=== PATIENT | female | born 1960 | race Caucasian/White ===

== ENCOUNTER 2019-05-26 06:50 | Day surgery (SDC) | payer MEDICARE, MEDICAID ==
[~2019-05-26] VITALS: Ht 167.6 cm; Wt 106.6 kg
[~2019-05-26 06:50] MED LIST: ACETAMINOPHEN-1 EAC1 PO; ASPIR-LOW81 MG PO; CHANTIX1 MG PO; CYCLOBENZAPRINE10 MG PO; LIPITOR40 MG; PERCOCET 10-321 EACH PO; PROAIR RESPICL90 MCG INH; TYLENOL325 MG PO; ZESTRIL40 MG PO
--- NOTE | 2019-05-26 09:05 | NUR ---
05/26/19 0905 Sheets,Britta 0832 PT ARRIVED TO PACU ON 10L VIA MASK AND ORAL AIRWAY IN PLACE. 0834 PT WOKE TO PAINFUL STIMULI AND STARTED COUGHING. BP DECREASED, FLUIDS INCREASED. PT PASSING GAS. 0840 RN MOVES BP CUFF TO OTHER ARM, PT DOES REPORT SOME DIZZINESS, HOB MOVED FROM LOW FOWLERS TO SUPINE. 0855 PT REPORTS NO CHANGE IN DIZZINESS, PT TALKING TO RN. 0900 MANUAL BP TAKEN, 98/60. PT ROLLED ON BACK AND REMIANS IN SUPINE WITH FLUIDS INFUSING. PT DOES REPORT DIZZINESS "A LITTLE" BETTER.
--- NOTE | 2019-05-26 12:40 | OR ---
[facility] [address] [place], [place] [address] Signed DATE OF OPERATION: 05/26/2019 SURGEON: Victor Hugo Valle MD PREOPERATIVE DIAGNOSES: 1. Personal history of right colon adenomatous polyps in 2016. 2. Maternal grandmother with colon cancer. 3. Intermittent blood in stools. POSTOPERATIVE DIAGNOSES: 1. Poor bowel prep. 2. Akaqoze-nb-aehgasor internal hemorrhoids. PROCEDURE: Colonoscopy without biopsy. ESTIMATED BLOOD LOSS: None. INDICATIONS: Yessenia is a 59-year-old female, who has had at least three prior colonoscopies. She did have adenomatous polyps taken out of the right colon in 2016. She was asked by her endoscopist to follow up in 3 years for repeat colonoscopy. Her endoscopist is now retired. Consequently, she was asked to see me with respect to the above. She also explained that her maternal grandmother had colon cancer. Currently, she has no lower GI complaints. In the office, I gave her a pamphlet on colonoscopy. We looked at that together along with the risks including, but not limited to gas bloating, crampy abdominal pain, bleeding, perforation requiring surgery, and missed diagnosis. We also discussed the need for IV conscious sedation. Given her very round full face and neck plus her daily need for Percocet and Flexeril, we asked that an anesthesia provider help us with increased monitoring and sedation with propofol. She had expressed understanding and wished to proceed. PROCEDURE NOTE: Yessenia was taken into our endoscopy suite and placed in the left lateral decubitus position. She was given IV sedation with propofol per our nurse trauma therapist. She had a moderate amount of thick semi-solid brown stool come from the rectum. Her digital rectal exam was unremarkable. The adult colonoscope was introduced. We passed the scope all the way up into the cecum. She had very poor bowel prep. She had multiple areas of heavy thick particulate brown liquid stool matter. None of that could be Electronically Signed By: VICTOR HUGO VALLE MD 05/26/19 1240 PATIENT NAME: YESSENIA VILLAFANA OPERATIVE REPORT DATE OF : 58 REPORT #: [id number] PHYSICIAN: VICTOR HUGO VALLE MD PCP: JESSICA BALDERAS MD REPORT IS CONFIDENTIAL AND NOT TO BE RELEASED WITHOUT AUTHORIZATION [facility] [address] [place], [place] [address] Signed irrigated or suctioned out. We could see the yuhaaviatam's foot and palpate the cecum in the right lower quadrant. We did see the hepatic flexure. The scope had been slowly withdrawn. We had taken several pictures throughout for photodocumentation. We probably saw no more than 40% of the mucosa. Once in the rectum, the scope had been retroflexed and it looks like she has ongricx-vg-lgcpugql internal hemorrhoid columns. After this, the gas was suctioned out and the colonoscope removed. Yessenia tolerated procedure quite well. RECOMMENDATIONS: Yessenia needs to undergo a double bowel prep and we will reschedule her for a repeat colonoscopy with monitored anesthesia care. Victor Hugo Valle MD ALB/MODL /[id number] cc: MD Jessica Whitten MD Copies: VICTOR HUGO VALLE MD, CHRISTOPHER MD ~ Electronically Signed By: VICTOR HUGO VALLE MD 05/26/19 1240 PATIENT NAME: YESSENIA VILLAFANA OPERATIVE REPORT DATE OF : 58 REPORT #: [id number] PHYSICIAN: VICTOR HUGO VALLE MD PCP: JESSICA BALDERAS MD REPORT IS CONFIDENTIAL AND NOT TO BE RELEASED WITHOUT AUTHORIZATION
== END 2019-05-26 09:38 | disposition home or self-care (01) ==
LOC: OPS 06:50 → DS 06:50 → OPS 08:15 → DS 08:45 → OPS 08:45
PROVIDERS: Colon & Rectal Surgery
PROC: 0DJD8ZZ Inspection of Lower Intestinal Tract, Via Natural or Artificial Opening Endoscopic (ICD-10-PCS; principal; 2019-05-26 08:15)
DX: K64.8 Other hemorrhoids (principal); I10 Essential (primary) hypertension; M19.90 Unspecified osteoarthritis, unspecified site; F17.210 Nicotine dependence, cigarettes, uncomplicated; J44.9 Chronic obstructive pulmonary disease, unspecified; E78.00 Pure hypercholesterolemia, unspecified; F12.90 Cannabis use, unspecified, uncomplicated; Z86.010 Personal history of colon polyps; Z80.0 Family history of malignant neoplasm of digestive organs; Z98.890 Other specified postprocedural states; Z88.5 Allergy status to narcotic agent; Z79.899 Other long term (current) drug therapy; Z79.82 Long term (current) use of aspirin
CPT/HCPCS: J2704; J7121

== ENCOUNTER 2019-07-14 05:55 | Day surgery (SDC) | payer MEDICARE, MEDICAID ==
[~2019-07-14] VITALS: Ht 167.6 cm; Wt 104.8 kg
[~2019-07-14 05:55] MED LIST changes: -LIPITOR40 MG; +LIPITOR40 MG PO
--- NOTE | 2019-07-14 08:24 | NUR ---
07/14/19 0824 Pranav,Britta 0811 PT WOKE AND IS ON 6L VIA MASK. PT AWAKE AND TALKING TO RN. PT REPORTS NO PAIN, THEN "WAIT NO BACK IS HURTING REALLY BAD." PT REPORTS SHE TAKE PAIN MEDICATION AT HOME. 0815 MD AT BEDSIDE. 0818 O2 REMOVED. HOB INCREASED AND PT SIPPING WATER AND COFFEE.
--- NOTE | 2019-07-15 06:29 | OR ---
[facility] [address] [place], [place] [address] Signed DATE OF OPERATION: 07/14/2019 SURGEON: Victor Hugo Valle MD PREOPERATIVE DIAGNOSES: 1. Adenomatous colonic polyps in 2016. 2. Grandmother with colon cancer. POSTOPERATIVE DIAGNOSES: 1. 3-5 mm polyps in proximal right colon, mid right colon, hepatic flexure, 65 cm, 50 cm, and 15 cm. 2. Bfbgjvd-tg-mivquoez internal and external hemorrhoids. PROCEDURE: Colonoscopy without biopsy. ESTIMATED BLOOD LOSS: None. INDICATIONS: Yessenia is a 59-year-old female, who underwent her colonoscopy in January [address] Tommie Briseno. She had two small adenomatous polyps removed out of the right colon. She returns now for followup colonoscopy. She has no lower GI complaints. Her grandmother apparently had colon cancer. No one else has colon polyps. In the office, I gave Yessenia a pamphlet on colonoscopy and we looked at that together along with the risks including, but not limited to gas, bloating, crampy abdominal pain, bleeding, perforation requiring surgery, and missed diagnosis. We also discussed the need for IV sedation. Because of her daily need for Percocet, Flexeril, and hydroxyzine, she required endotracheal tube intubation in 2015 and we asked for an anesthesia provider to help us on this occasion. She had expressed understanding and wished to proceed. PROCEDURE NOTE: Yessenia was taken into our endoscopy suite and placed in the left lateral decubitus position. She was placed under LMA anesthesia per our nurse curtain hemmer automatic. A digital rectal exam was performed and this was unremarkable other than minimal to moderate external hemorrhoids. The adult colonoscope was introduced and advanced all around into the cecum under direct visualization of camera without difficulty. Her prep was quite good. The scope was slowly withdrawn. We could easily see the appendiceal orifice and the ileocecal valve. The above-mentioned polyps were easily removed with the help of the hot biopsy forceps. They all measured between 3 and 5 mm. The largest would be at Electronically Signed By: VICTOR HUGO VALLE MD 07/15/19 0629 PATIENT NAME: YESSENIA VILLAFANA OPERATIVE REPORT DATE OF : 58 REPORT #: [id number] PHYSICIAN: VICTOR HUGO VALLE MD PCP: JESSICA BALDERAS MD REPORT IS CONFIDENTIAL AND NOT TO BE RELEASED WITHOUT AUTHORIZATION [facility] [address] [place] [id number] Signed 50 cm. It was probably 5 mm, maybe 6 mm. We saw no diverticulosis. The rectum was unremarkable. Upon retroflexion of the scope, she has minimal to moderate internal hemorrhoids. After this, the gas was suctioned out and colonoscope removed. Yessenia tolerated the procedure quite well. RECOMMENDATIONS: I will see Yessenia back in my office in 7 to 14 days to review her results. She can resume the aspirin in one week. Victor Hugo Valle MD ALB/TESFAYEL /[id number] cc: [facility] Victor Hugo Valle MD Copies: VICTOR HUGO VALLE MD ~ Electronically Signed By: VICTOR HUGO VALLE MD 07/15/19 0629 PATIENT NAME: YESSENIA VILLAFANA OPERATIVE REPORT DATE OF : 58 REPORT #: [id number] PHYSICIAN: VICTOR HUGO VALLE MD PCP: JESSICA BALDERAS MD REPORT IS CONFIDENTIAL AND NOT TO BE RELEASED WITHOUT AUTHORIZATION
--- NOTE | 2019-07-15 15:12 | PATH ---
[facility] [address] [place], [place] [address] Signed SPECIMEN(S): A PROXIMAL RIGHT POLYP SPECIMEN(S): B MID RIGHT POLYP SPECIMEN(S): C HEPATIC FLEXURE POLYP SPECIMEN(S): D COLON POLYP AT 65 CM SPECIMEN(S): E COLON POLYP AT 50 CM SPECIMEN(S): F COLON POLYP AT 15 CM SPECIMEN SOURCE: A. PROXIMAL RIGHT POLYP B. MID RIGHT POLYP C. HEPATIC FLEXURE POLYP D. COLON POLYP AT 65 CM E. COLON POLYP AT 50 CM F. COLON POLYP AT 15 CM CLINICAL HISTORY: History of colon polyps, 2016. Colonoscopy. MICROSCOPIC DESCRIPTION: Histologic sections of all submitted blocks are examined by light microscopy. These findings, together with the gross examination, support the pathologic diagnosis. FINAL PATHOLOGIC DIAGNOSIS: A. Colon, proximal right, polyp, polypectomy: - Tubular adenoma (one fragment). - Fragments of colonic mucosa with cautery artifact. - Negative for high-grade dysplasia or malignancy. - See Comment. B. Colon, mid right, polyp, polypectomy: - Fragments of tubular adenoma. - Negative for high-grade dysplasia or malignancy. C. Colon, hepatic flexure, polyp, polypectomy: - Tubular adenoma. - Negative for high-grade dysplasia or malignancy. D. Colon, polyp at 65 cm, polypectomy: - Fragments of tubular adenoma. - Negative for high-grade dysplasia or malignancy. E. Colon, polyp at 50 cm, polypectomy: - Fragments of tubular adenoma. - Negative for high-grade dysplasia or malignancy. F. Colon, polyp at 15 cm, polypectomy: PATIENT NAME: THEO VILLAFANA PATHOLOGY DATE OF : 58 REPORT #: [id number] PHYSICIAN: DON PATHOLOGY PCP: JESSICA BALDERAS MD REPORT IS CONFIDENTIAL AND NOT TO BE RELEASED WITHOUT AUTHORIZATION [facility] [address] [place], [place] [address] Signed - Colonic mucosa with focal hyperplastic features. - Negative for dysplasia or malignancy. COMMENT: The amount of cautery artifact in the proximal right colon polyp specimen (A) precludes definitive evaluation for low-grade dysplasia in all of the tissue fragments present. No features of high-grade dysplasia or malignancy are seen. NAL:cml:C2NR GROSS DESCRIPTION: Six specimens are received in six containers, labeled "CD." A. The specimen, labeled "CD, proximal right colon," per requisition, is received in formalin and consists of multiple stone soft tissue fragments that measure 0.4 cm in greatest dimension. The specimen is entirely submitted in cassette (A1). B. The specimen, labeled "CD, mid right colon," per requisition, is received in formalin and consists of two stone soft tissue fragments that measure 0.3 cm in greatest dimension. The specimen is entirely submitted in cassette (B1). C. The specimen, labeled "CD, hepatic flexure," per requisition, is received in formalin and consists of two stone soft tissue fragments that measure 0.3 cm in greatest dimension. The specimen is entirely submitted in cassette (C1). D. The specimen, labeled "CD, colon polyp at 65 cm," per requisition, is received in formalin and consists of a single stone soft tissue fragment that measures 0.4 cm in greatest dimension. The specimen is entirely submitted in cassette (D1). E. The specimen, labeled "CD, colon polyp at 50 cm," per requisition, is received in formalin and consists of two stone soft tissue fragments that measure 0.3 cm in greatest dimension. The specimen is entirely submitted in cassette (E1). F. The specimen, labeled "CD, colon polyp at 15 cm," per requisition, is received in formalin and consists of two stone soft tissue fragments that measure 0.3 cm in greatest dimension. The specimen is entirely submitted in cassette (F1). AT (under the direct supervision of a pathologist) The Gross Description was prepared using a voice recognition system. The report was reviewed for accuracy; however, sound-alike word errors, addition and/or deletions may occur. If there is any question about this report, please contact Client Services. PATIENT NAME: THEO VILLAFANA PATHOLOGY DATE OF : 58 REPORT #: [id number] PHYSICIAN: DON FOWLER PCP: JESSICA BALDERAS MD REPORT IS CONFIDENTIAL AND NOT TO BE RELEASED WITHOUT AUTHORIZATION [facility] [address] [place], [place] [address] Signed PERFORMING LABORATORY: The technical component was performed by [employer], [address] [place] [id number] ([employer]: Keren León MD; CLIA# [id number]). [facility], [address], [place] [address] (CLIA# [id number]). Diagnostician: Selena Rubin MD Pathologist Electronically Signed 07/15/2019 Copies: ~ PATIENT NAME: THEO VILLAFANA PATHOLOGY DATE OF : 58 REPORT #: [id number] PHYSICIAN: DON PATHOLOGY PCP: JESSICA BALDERAS MD REPORT IS CONFIDENTIAL AND NOT TO BE RELEASED WITHOUT AUTHORIZATION
== END 2019-07-14 09:05 | disposition home or self-care (01) ==
LOC: DS 05:55 → OPS 05:55
PROVIDERS: Colon & Rectal Surgery
PROC: 0DBL8ZZ Excision of Transverse Colon, Via Natural or Artificial Opening Endoscopic (ICD-10-PCS; 2019-07-14)
PROC: 0DBE8ZZ Excision of Large Intestine, Via Natural or Artificial Opening Endoscopic (ICD-10-PCS; 2019-07-14)
PROC: 0DBK8ZZ Excision of Ascending Colon, Via Natural or Artificial Opening Endoscopic (ICD-10-PCS; principal; 2019-07-14 06:45)
DX: Z12.11 Encounter for screening for malignant neoplasm of colon (principal); D12.2 Benign neoplasm of ascending colon; D12.3 Benign neoplasm of transverse colon; K63.5 Polyp of colon; K64.8 Other hemorrhoids; K64.4 Residual hemorrhoidal skin tags; I10 Essential (primary) hypertension; M19.90 Unspecified osteoarthritis, unspecified site; F17.210 Nicotine dependence, cigarettes, uncomplicated; J44.9 Chronic obstructive pulmonary disease, unspecified; G89.29 Other chronic pain; F11.90 Opioid use, unspecified, uncomplicated; Z88.5 Allergy status to narcotic agent; Z79.899 Other long term (current) drug therapy; Z80.0 Family history of malignant neoplasm of digestive organs; Z98.890 Other specified postprocedural states
CPT/HCPCS: J0330; J2704; J7121

== ENCOUNTER 2021-07-13 19:30 | Inpatient (IN) | payer MEDICARE, MEDICAID ==
[~2021-07-13] VITALS: Ht 167.6 cm; Wt 108.8 kg
--- NOTE | ~2021-07-13 | OR ---
[facility] [address] [place], [place] [address] Draft DATE OF OPERATION: 07/17/2021 SURGEON: Ruslan Naidu MD PREOPERATIVE DIAGNOSIS: Right posterolateral acute hemorrhoidal thrombosis. POSTOPERATIVE DIAGNOSIS: Right posterolateral acute hemorrhoidal thrombosis. PROCEDURE: Excision of right posterolateral external hemorrhoid with thrombosis. ANESTHESIA: 0.25% Marcaine with epinephrine 3 mL. INDICATION: This 61-year-old woman has been admitted since July 13, 2021, with left-sided abdominal pain, ultimately found to be related to ischemic colitis. During the course of her colonoscopy recently, she was noted to have complaints of right perianal pain and small nodule, which was examined and found to be thrombosed hemorrhoid (thrombosed external hemorrhoid). Sitz baths have been helpful. Given the acute nature of the lesion and ongoing symptoms, excision is deemed reasonable and offered to the patient. The risk of bleeding, infection, and so forth were reviewed with her, she understands and wished to proceed. FINDINGS: Typical acute thrombosed external hemorrhoid was noted in the right posterolateral aspect. It was excised and enucleated with overlying skin without problem. DESCRIPTION OF PROCEDURE: The patient was brought to the operating room. No IV or general anesthesia was deemed necessary. In the prone position, the buttocks were taped apart and the perianal area prepared with a Betadine solution and draped sterilely. 0.25% Marcaine with epinephrine was injected locally in elliptical configuration over the thrombosed hemorrhoid area. Elliptical incision was made with a 15 blade and using blunt and sharp dissection, the thrombosis with external hemorrhoid was enucleated with the overlying skin entirely. The specimen was passed for pathology. Hemostasis was assured with electrocautery. A small piece of gauze was applied to the site and she was returned to the regular hospital bed PATIENT NAME: THEO VILLAFANA OPERATIVE REPORT DATE OF : 58 REPORT #: [id number] PHYSICIAN: RUSLAN NAIDU MD PCP: VALERY BECERRA MD REPORT IS CONFIDENTIAL AND NOT TO BE RELEASED WITHOUT AUTHORIZATION [address] [address] Draft anticipating transfer back to the regular nursing floor. MD EL Link/MODL /[id number] cc: Valery Becerra MD Copies: VALERY BECERRA MD ~ PATIENT NAME: THEO VILLAFANA OPERATIVE REPORT DATE OF : 58 REPORT #: [id number] PHYSICIAN: RUSLAN NAIDU MD PCP: VALERY BECERRA MD REPORT IS CONFIDENTIAL AND NOT TO BE RELEASED WITHOUT AUTHORIZATION
--- NOTE | ~2021-07-13 | CONS ---
[facility] [address] [place], [place] [address] Draft DATE OF CONSULTATION: 07/14/2021 REQUESTING PHYSICIAN: Valery Becerra M.D. PROBLEM: Left-sided colitis with hematochezia. HISTORY OF PRESENT ILLNESS: This 61-year-old obese Spanish woman was admitted to the hospital at approximately 11:40 p.m. last night, July 13, 2021. She has dominantly complained of left-sided abdominal pain. Prior to this, she was constipated for several days and baked some high-fiber cookies, which allowed for bowel movements, but progressed to cramping abdominal pain associated with diarrhea and ultimately frankly bloody stools. Her pain has been considered severe. She was evaluated in the emergency room and a CT scan was performed and it showed left-sided colitis. The patient has distant history of hypertension and chronic bronchitis, restless legs syndrome, and hyperlipidemia. She does have what has been documented as chronic pain syndrome and opioid dependency. MEDICATIONS: At home include: 1. Albuterol. 2. Lisinopril. 3. Aspirin. 4. Atorvastatin. 5. Cyclobenzaprine. 6. Chantix. I see no medications listed for opioid dependency disorder. Her lab studies at presentation showed normal coagulation with an INR of 0.96. White count of 13.9 and hematocrit of 45.8. Urinalysis was essentially normal. COVID is negative. Chem-20 is normal. Creatinine is 0.99. Since admission to the hospital, she has been on IV antibiotics (Flagyl and Ancef). Her white count has gone from 13.9 to 12.3 today. REVIEW OF SYSTEMS: She denies any hematemesis or nausea or vomiting. She still has some left-sided abdominal pain. She has had no fever or chills. PHYSICAL EXAMINATION: PATIENT NAME: THEO VILLAFANA CONSULTATION DATE OF : 58 REPORT #: [id number] PHYSICIAN: RUSLAN NAIDU MD PCP: VALERY BECERRA MD REPORT IS CONFIDENTIAL AND NOT TO BE RELEASED WITHOUT AUTHORIZATION [facility] [address] [place], [place] [address] Draft GENERAL: This is a pleasant and polite Spanish woman, who looks to be nontoxic. VITAL SIGNS: Pulse is 64, blood pressure 102/49, and O2 saturation 96% on room air. NECK: Trachea is midline. CHEST: Shows normal respiratory excursion. Pulses regular. ABDOMEN: Obese, but generally soft. There is mild tenderness in the left side, none on the right side. EXTREMITIES: Showed no clubbing, cyanosis, or edema. LABORATORY DATA: Lab studies at admission showed white count of 13.9 with hematocrit of 45.8. Currently, white count is 12.3. IMAGING STUDIES: Reviewed from CAT scan performed last night at 08:00 p.m., clear evidence of edematous left-sided colon was noted. Other intraabdominal viscera are normal including the liver and the gallbladder. She has thick abdominal wall pannus. There is no evidence of umbilical hernia. I do not see dominant findings of diverticulitis. Inflammation is distributed dominantly in the left colon it appears. The interpretation of the radiologist was that of long segment distal colitis from the distal transverse colon to the proximal sigmoid and subtle pericolonic stranding. There is no evidence of free fluid or abscess. There is a moderate-sized hiatal hernia and atherosclerotic disease of the aorta vessels, although all were patent. ASSESSMENT AND PLAN: Probably ischemic colitis. The distribution of her problem is very typical of ischemic colitis. She does smoke (having quit three days ago). I discussed the pathophysiology of this problem with her in detail. I would recommend continued IV antibiotics and clear liquid diet for now and planned for a colonoscopy after a bowel prep today. A colonoscopy can be performed tomorrow. I suspect she will have ischemic colitis, for which conservative management will likely be effective. Discussed the pathophysiology of this with her in detail. Complete cessation of smoking will be beneficial to her in the long run and its contribution to her current symptoms was diamante reviewed in detail. The risk of bleeding, infection, and perforation related to colonoscopy was reviewed as well. She understands and wished to proceed. Special note, she has undergone colonoscopy in the past by Dr. Dex Licona, for which she has been found to have polyps. Review of her electronic health record was undertaken and the July 14, 2019 colonoscopy report was reviewed; it appears she is noted to have a grandmother with colon cancer in the past and she had prior history of adenomatous polyps in 2016. Her findings on July 14, 2019, showed 5 mm polyps in the proximal right colon and elsewhere. She had some internal hemorrhoidal changes as well. PATIENT NAME: THEO VILLAFANA CONSULTATION DATE OF : 58 REPORT #: [id number] PHYSICIAN: RUSLAN NAIDU MD PCP: VALERY BECERRA MD REPORT IS CONFIDENTIAL AND NOT TO BE RELEASED WITHOUT AUTHORIZATION [address] [address] Draft MD EL Link/TESFAYEL /[id number] cc: Dr. Fred Cuba MD [facility] Copies: VALERY BECERRA MD [facility] ~ PATIENT NAME: THEO VILLAFANA CONSULTATION DATE OF : 58 REPORT #: [id number] PHYSICIAN: RUSLAN NAIDU MD PCP: VALERY BECERRA MD REPORT IS CONFIDENTIAL AND NOT TO BE RELEASED WITHOUT AUTHORIZATION
--- NOTE | ~2021-07-13 | OR ---
[facility] [address], [place] [address] Draft DATE OF OPERATION: 07/15/2021 SURGEON: Ruslan Naidu MD PREOPERATIVE DIAGNOSES: 1. Left-sided abdominal pain. CT finding of thickened colon, left transverse and left colon suggestive of ischemic colitis. 2. Recent onset hemorrhoidal disease. POSTOPERATIVE DIAGNOSES: 1. Normal-appearing transverse and right colon and rectum, left colon with findings of low-grade inflammation, uncertain for ischemic colitis. 2. External thrombosed hemorrhoid. 3. Left-sided sessile polyp (excised). PROCEDURES: 1. Total colonoscopy to cecum with biopsies of cecum, right colon, left colon, sigmoid and rectum. 2. Cold snare polypectomy x1 (50 cm). ANESTHESIA: Propofol infusional sedation (Deep Bee CRNA). INDICATIONS: This 61-year-old woman was admitted to the hospital by Dr. Becerra on July 13, 2021, with complaints of diarrhea and significant left-sided abdominal pain. A CT scan was performed which showed thickening consistent with colitis of the left colon, sigmoid and left transverse colon. Suggestion was made, this may represent ischemic colitis, so she did have some associated bleeding with it. The patient is a smoker. She has a distant history of hypertension and chronic bronchitis and hyperlipidemia. She has undergone bowel preparation, is now to undergo colonoscopy to confirm or refute the putative diagnosis of ischemic colitis. She understands the risks of bleeding, infection, and perforation related to colonoscopy and wished to proceed. FINDINGS: The prep was good. Complete colonoscopy was undertaken to the cecum without question. The right colon, much of the transverse and all of the rectum appeared entirely normal. There was a sessile polyp at 50 cm which was excised with cold snare technique. The intervening colon of particularly the left colon had the inflammation to be sure, but it PATIENT NAME: THEO VILLAFANA OPERATIVE REPORT DATE OF : 58 REPORT #: [id number] PHYSICIAN: RUSLAN NAIDU MD PCP: VALERY BECERRA MD REPORT IS CONFIDENTIAL AND NOT TO BE RELEASED WITHOUT AUTHORIZATION [facility] [address], [place] [address] Draft was not as severe as anticipated. It was somewhat ambiguous as to the etiology regarding ischemic versus inflammatory in some other way. There were segments that were not circumferentially inflamed and therefore the best fit diagnosis in her case is early ischemic colitis. Additionally, she was noted to have an external hemorrhoidal thrombosis which was without ulceration at this point. PROCEDURE IN DETAIL: The patient was brought to the endoscopy suite and placed in lateral decubitus position given intravenous sedation with propofol infusional technique by the asphalt screed operator. A digital rectal examination was undertaken. There was a thrombosed external hemorrhoid noted without sign of ulceration and relatively new in its onset obviously. An Olympus video colonoscope was passed in the rectum and manipulated throughout the colon. The rectum and sigmoid appeared reasonably normal. The scope was passed beyond this to the left colon where there was clearly signs of inflammation, but it did not appear as severe as often for ischemic colitis. The scope was ultimately advanced to the cecum. The ileocecal valve was identified. Biopsies were taken of the cecum, though it appeared normal. The scope was withdrawn. A biopsy was then taken of the right colon and transverse colon. Neither which appeared particularly inflamed. Upon withdrawal to the splenic flexure and left colon there was signs of mucosal inflammation. No sign of lizzy necrosis by any means. Biopsies were obtained. There was a sessile polyp at about 50 cm in the left colon which was excised with cold snare technique and passed for pathology. Further withdrawal showed persistence of the colitis in the distal left colon and sigmoid. There were some areas where the colitis did not appear circumferential and therefore more likely ischemic colitis (early) than an infectious colitis or inflammatory bowel disease type colitis. Further withdrawal was undertaken to the rectosigmoid and rectum which were entirely normal. Biopsies were obtained there as well. Retroflexed view showed internal hemorrhoids. The scope was removed and palpation of the external hemorrhoidal thrombosis undertaken showing it to be well formed without sign of ulceration. The patient was taken to the recovery room in good condition. CONCLUDING DIAGNOSIS: Most likely this represents early ischemic colitis for which fluid resuscitation, avoidance of smoking and in her situation antibiotic therapy will be beneficial. Pathogen assessment for stool was still pending, but will be of note. As regard the external thrombosed hemorrhoid Sitz baths can be initiated. Excision can be undertaken under with local technique. If appropriate, we will consider that further. PATIENT NAME: HTEO VILLAFANA OPERATIVE REPORT DATE OF : 58 REPORT #: [id number] PHYSICIAN: RUSLAN NAIDU MD PCP: VALERY BECERRA MD REPORT IS CONFIDENTIAL AND NOT TO BE RELEASED WITHOUT AUTHORIZATION [facility] [address] [place] [id number] Draft MD EL Link/MODL /[id number] cc: Valery Becerra MD Copies: VALERY BECERRA MD ~ PATIENT NAME: THEO VILLAFANA BUTCH OPERATIVE REPORT DATE OF : 58 REPORT #: [id number] PHYSICIAN: RUSLAN NAIDU MD PCP: VALERY BECERRA MD REPORT IS CONFIDENTIAL AND NOT TO BE RELEASED WITHOUT AUTHORIZATION
[~2021-07-13 19:30] MED LIST changes: -ASPIR-LOW81 MG PO; -CHANTIX1 MG PO; +LO-DOSE ASPIRIN81 M1 PO; +VARENICLINE TART1 MG PO
--- OUTSIDE RECORDS SUMMARY | 2021-07-13 19:34 | XMS ---
PreManage Notification: THEO VILLAFANA [employer] Events No recent Security Events currently on file CRITERIA MET - [facility] CARE PROVIDERS There are no care providers on record at this time. Emily has no Care Guidelines for this patient. [facility] VISIT COUNT (12 MO.) 1 [facility] 1 [facility] TOTAL 2 NOTE: Visits indicate total known visits. ED/UCC VISIT TRACKING (12 MO.) 07/13/2021 19:32 [facility] [place] TYPE: Emergency COMPLAINT: - BLOOD IN STOOL 02/22/2021 23:[address] [facility] TYPE: Emergency DIAGNOSES: - chest pain - Other chest pain INPATIENT VISIT TRACKING (12 MO.) No inpatient visits to display in this time frame [email or web address]
--- NOTE | 2021-07-13 23:36 | NUR ---
TELEPHONE REPORT RECEIVED FROM ED JENNIFER SCHULER. QUESTIONS ANSWERED, AWAITING pt's ARRIVAL TO MEDSUR. VARIOUS ADMITS COMING TO MEDSURG FLOOR. SALES AGENT [employer] VENDING SERVICE TO BRING pt TO MEDSURG FLOOR. RETURNED CASE INSPECTORJENNIFER FULLER.
--- NOTE | 2021-07-14 01:22 | NUR ---
pt ARRIVED TO THE [facility] FLOOR VIA ED WHEELCHAIR. pt ORIENTED TO ROOM AND CALL LIGHT IN REACH. pt REPORTS PAIN IS TOLERABLE, RATES 3-4/10. DENIES NAUSEA. IV SITE WNL, FLUSHES EASILY. IV BOLUS INFUSING DIRECTED. NO FURTHER NEEDS, HIGHWAY TRUCK DRIVERJENNIFER SALAZAR IN ROOM TO COMPLETE QUICK ADMIT.
--- NOTE | 2021-07-14 02:17 | NUR ---
COMPLETED ADMISSION HX WITH PT. PT HAD 7/10 ABD PAIN AND HEADACHE. ADMINISTERED OXYCODONE 10MG PO WITH SIP OF WATER AND 5MG IV COMPAZINE DILUTED SLOWPUSH. PT DENIED NEEDING NICOTINE LOZENGE AT THIS TIME. PT DENIES FURTHER NEEDS. CALL LIGHT IS CLOSE AND IV IS INFUSING FINE.
--- NOTE | 2021-07-14 03:16 | NUR ---
PT CALLED D/T BEEPING IV. NEW BAG OF LR IS NOW INFUSING AT 150MLS/HR. PT REPORTS PAIN HAS IMPROVED AND IS NOW A 4/10 AND HEADACHE IS GONE. PT DENIES FURTHER NEEDS. CALL LIGHT IS CLOSE.
--- NOTE | 2021-07-14 03:32 | NUR ---
CALL LIGHT ANSWERED, IV PUMP ALARMING. ISSUE RESOLVED. IV SITE WNL, FLUIDS NOW INFUSING DIRECTED. NO FURTHER NEEDS, CALL LIGHT IN REACH.
--- NOTE | 2021-07-14 03:51 | NUR ---
TELEPHARMACY FAXED TO [facility] pt's IV ANCEF AND IV FLAGYL.
--- NOTE | 2021-07-14 05:52 | NUR ---
INFORMED BY SAI GREENBERG, pt REPORTS NAUSEA AND REPORTED BLOOD IN TIOLET, THIS RN DID NOT WITNESS D/T TIOLET BEING FLUSHED BEFORE THIS RN ARRIVED TO ROOM. NO BLOOD NOTED IN ATTENDS, WILL MONITOR. AM H&H LABS REMAIN STABLE. RENTAL AGENT UPDATED. PRN NAUSEA MEDICATION GIVEN, SEE EMAR. CALL LIGHT IN REACH.
--- NOTE | 2021-07-14 07:30 | NUR ---
REPORT RECIEVED FROM CHIEF INFORMATICS OFFICER RN PT SLEEPING IN BED, ROOM AIR, CALL LIGHT WITHIN REACH NO NEEDS AT THE MOMENT, WAITING FOR DR NAIDU TO ROUND ON PT.
[2021-07-14] MEDS ORDERED: ATORVASTATIN CA80 MG PO (07:31)
[2021-07-14] MEDS ORDERED: FERROUS SULFAT325 M1 PO (07:32)
[2021-07-14] MEDS ORDERED: VITAMIN C500 M1 PO (07:33)
[2021-07-14] MEDS ORDERED: PREGABALIN100 MG PO (07:36)
[2021-07-14] MEDS ORDERED: FLOVENT DISKU100 MCG INH (07:37)
[2021-07-14] MEDS ORDERED: VALACYCLOVIR500 MG PO (07:40)
[2021-07-14] MEDS ORDERED: SPIRIVA18 MCG INH (07:41)
[2021-07-14] MEDS ORDERED: DULOXETINE HCL60 MG PO (07:42)
[2021-07-14] MEDS ORDERED: CLONIDINE1 EACH TOP (08:12)
[2021-07-14] MEDS ORDERED: VITAMIN D325 MC2 PO (08:13)
[2021-07-14] MEDS ORDERED: OXYCODONE-ACET1 EAC3 PO (08:17)
--- NOTE | 2021-07-14 08:40 | NUR ---
RN IN ROOM TO DO MORNING ASSESSMENT AND GIVE MEDICATIONS, PT COMPLAINING OF PAIN AND NAUSEA PRN MEDICATIONS ADMININISTED, DENIES ANY NEEDS AT THE MOMENT
--- NOTE | 2021-07-14 15:30 | NUR ---
RN IN ROOM TO ROUND ON PT, INITIATED BOWEL PREP, PT COMPLAINING OF PAIN PRN OXY GIVEN, BP MEDICATIONS HELD, DR BECERRA AWARE OF HAVING SOFT BP AFTER MORNING DOSE.
--- NOTE | 2021-07-14 18:33 | NUR ---
RN IN ROOM TO RESTART IV FLUIDS, RATE CHANGED T0 100/ML/HR PER ORDER, PT ABLE TO GET FOWN 1 BOTLE OF BOWEL PREP WITH 1BM. VERIFIED WITH BUILDING CONSTRUCTION SUPERVISOR THAT SHE CAN HAVE 2 VISITORS HER MOM NEEDS HER SISTER TO GET HER HERE
--- NOTE | 2021-07-14 19:00 | NUR ---
pt RESTING IN BED, AWAKE. RR EVEN AND UNLABORED, NO DISTRESS NOTED. IV SITE WNL, FLUIDS INFUSING DIRECTED. CALL LIGHT IN REACH.
--- NOTE | 2021-07-14 21:08 | NUR ---
ASSESSMENT COMPLETE, SCHEDULED MEDS GIVEN ALONG WITH PRN PAIN AND NAUSEA MEDICATION. IV FLUIDS INFUSING DIRECTED, IV SITE WNL. BOWEL TONES ACTIVE, NO EMESIS NOTED. WILL MONITOR. CALL LIGHT IN REACH. pt AWARE SHE IS TO BE NPO AT MIDNIGHT.
--- NOTE | 2021-07-14 22:46 | NUR ---
IN ROOM, IV PUMP ALARMING. ISSUE RESOLVED, IV SITE REMAINS WNL. pt REPORTS X2 BMS RECENTLY. BROWN SEDIMENT IN COLOR IN BOTTOM OF TIOLET, WATER LIGHT YELLOW/GREEN IN COLOR AND TRANSPARENT. NO FURTHER NEEDS, CALL LIGHT IN REACH.
--- NOTE | 2021-07-14 23:49 | NUR ---
SCHEDULED IV ABX INFUSING, SEE EMAR. IV SITE WNL. pt DENEIS ADDITIONAL NEEDS, REPORTED ANOTHER BM, UNABLE TO WITNESS pt FLUSHED BEFORE THIS RN COULD VISUALIZE. CALL LIGHT IN REACH.
--- NOTE | 2021-07-15 00:10 | NUR ---
pt NPO AT THIS TIME, NO FURTHER NEEDS. MOUTH SWABS PROVIDED. CALL LIGHT IN REACH.
--- NOTE | 2021-07-15 02:06 | NUR ---
CALL LIGHT ANSWERED, PRN NAUSEA MEDICATION GIVEN, SEE EMAR. pt REPORTS TOLERABLE 5/10 PAIN, LIKELY RELATED TO NAUSEA PER pt. NO ACUTE CHANGES TO ASSESSMENT. IV SITE WNL, BRISK BLOOD RETURN NOTED PRIOR TO INFUSING PRN PHENERGEN (MEDICATION DILUTED AND INFUSING PER HOSPITAL POLICY. NO FURTHER NEEDS. CALL LIGHT IN REACH.
--- NOTE | 2021-07-15 04:40 | NUR ---
IV PUMP ALARMING, ISSUE RESOLVED. NO FURTHER NEEDS OR CONCERNS. CALL LIGHT IN REACH.
--- NOTE | 2021-07-15 05:23 | NUR ---
PRN PAIN MEDICATION GIVEN FOR 7/10 ABD PAIN, SEE EMAR. VSS AND I&O'S COMPLETE. IV FLUIDS INFUSING DIRECTED, IV SITE WNL. NO FURTHER NEEDS, CALL LIGHT I REACH. LR WITH SRAIGHT TUBING ALSO IN ROOM.
--- NOTE | 2021-07-15 07:28 | NUR ---
Report received from Liza RODRIGUEZ. Pt resting in bed, awakens to voice and A+O. on room air. No pain or needs at this time. IVF infusing WNL. Will continue plan of care.
--- NOTE | 2021-07-15 08:08 | NUR ---
Scheduled medications administered and assessment complete. Pt resting in bed, states having 5/10 ABD pain and slight nausea, PRN medications given. IVF and IV ABX infusing WNL. RT in room for neb tx. Bowel tones active, ABD soft, tender in general. Pt remains NPO. No needs at this time.
--- NOTE | 2021-07-15 09:59 | NUR ---
Pt taken to OR for scope
--- NOTE | 2021-07-15 11:29 | NUR ---
PT PREPPED, EDUCATED, AND RECIEVES SITZ BATH. PT STATES THAT IT GIVES SOME RELIEF TO HER SORENESS. TOLERATES WELL WITHOUT COMPLAINT.
--- NOTE | 2021-07-15 12:00 | NUR ---
07/15/21 [address],[place]e [place] 1029: PATIENT ARRIVED TO PACU AWAKE AND TALKING. 1035: PATIENT MOVED ON TO RIGHT SIDE INDEPENDENTLY FOR COMFORT. C/O ABDOMINAL PAIN. 1045: PATIENT MOVED ON TO LEFT SIDE INDEPENDENTLY. NASAL CANNULA REMOVED. PATIENT ON ROOM AIR. 1100: PATIENT TRANSFERRED BACK TO M/S ROOM 125. REPORT GIVNE TO M/S JENNIFER MARI. PATIENT TOLERATED TRANSFER WELL.
--- NOTE | 2021-07-15 12:30 | NUR ---
Pt medicated with 2 tabs PRN oxycodone for pain. IVF infusing WNL. Pt resting in bed, would like to nap after scope. Warm blankets provided. Call light in reach.
--- NOTE | 2021-07-15 16:29 | NUR ---
Pt given PRN pain medication and PO ABX. IVF infusing WNL. She reports no needs at this time, family at bedside.
--- NOTE | 2021-07-15 19:10 | NUR ---
SHIFT REPORT RECEIVED FROM RAMIN MARI AT BEDSIDE. pt AWAKE AND RESTING IN BED, DENIES NEEDS OR CONCERNS. IV SITE SALINE LOCKED, SITE WNL. CALL LIGHT IN REACH.
--- NOTE | 2021-07-15 22:09 | NUR ---
ASSESSMENT COMPLETE,SCHEDULED MEDS GIVEN ALONG WITH PRN SPASM MEDICATION, SEE EMAR. VSS, pt ON RA. RR EVEN AND UNLABORED, NO DISTRESS NOTED. pt DENIES NEED FOR PAIN AND NAUSEA MEDICATION, WILL MONITOR. BOWEL TONES ACTIVE. IV SITE WNL, BRISK BLOOD RTURN NOTED AND FLUSHES EASILY. FRESH WATER AND EVENING SNACK PROVIDED. NO FURTHER NEEDS, CALL LIGHT IN REACH.
--- NOTE | 2021-07-15 23:49 | NUR ---
pt RESTING IN BED, ON PHONE AND TALKING WITH FAMILY. NO NEEDS OR CONCERNS VERBALIZED AT THIS TIME. CALL LIGHT REMAINS IN REACH OF pt.
--- NOTE | 2021-07-16 01:43 | NUR ---
pt awake and resting in bed, watching tv. denies needs or concerns, call light in reach. pt remains independent in room.
--- NOTE | 2021-07-16 04:26 | NUR ---
ROUNDED ON pt, pt RESTING IN BED WITH EYES CLOSED. RR EVEN AND UNLABORED, NO DISTRESS NOTED. AUDIBLE GAS NOTED. CALL LIGHT IN REACH.
--- NOTE | 2021-07-16 05:25 | NUR ---
VSS AND I&O'S COMPLETE. ASSESSMENT COMPLETE, NO ACUTE CHANGES. pt REPORTS TOLERABLE 3/10 PAIN AND DENIES NAUSEA. LAB IN ROOM COLLECTING AM LABS, FRESH WATER PROVIDED AND ROOM TIDIED. CALL LIGHT IN REACH.
--- NOTE | 2021-07-16 07:20 | NUR ---
Report received from Liza RODRIGUEZ. Pt resting in bed with eyes closed. On room air, even and unlabored RR. Per report patient had no pain or nausea throughout night. Will continue plan of care.
--- NOTE | 2021-07-16 09:10 | NUR ---
Scheduled medications administered and assessment complete. Pt resting in bed when this RN enters, awakens to voice and sits up at bedside for breakfast. VSS, A+O, on room air, SL. She states no pain or needs at this time.
--- NOTE | 2021-07-16 10:56 | NUR ---
PATIENT IN BED TALKING ON PHONE AT THIS TIME. VITALS AND I&O'S CHARTED. CALL LIGHT IN REACH. NO FURTHER NEEDS AT THIS TIME.
--- NOTE | 2021-07-16 12:00 | NUR ---
Rounded on patient who is sitting up at bedside and eating lunch. Tolerating diet well at this time with no c/o pain or nausea.
--- NOTE | 2021-07-16 14:01 | NUR ---
PATIENT SITTING UP IN EDGE OF BED. VITALS AND I&O'S CHARTED. BLOOD PRESSURE HIGH, RN NOTIFIED. CALL LIGHT IN REACH. NO FURTHER NEEDS AT THIS TIME.
--- NOTE | 2021-07-16 14:45 | NUR ---
PO ABX administered with pudding, fresh water provided. Pt states restless, coloring pages, guidepost and word search book given and patient using
--- NOTE | 2021-07-16 15:24 | NUR ---
Medications reconciled using pharmacy records, PCP chart notes and patient interview
--- NOTE | 2021-07-16 16:45 | NUR ---
Spoke with pt. She lives with her mom. [employer] has a fx in her back, they have multiple pieces of DME. Pt does not use. 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 Brothers will assist he r if she has any needs. Pt plans on dc to home. She is staying another day for a hemmorhoid repair.
--- NOTE | 2021-07-16 16:57 | NUR ---
Rounded on patient and offered sitz bath procedure, pt declines, encouraged to participate with sitz bath this evening and pt agrees. She requests "aspirin" for minor pain and refuses oxycodone. Reviewed POC and she is agreeable.
--- NOTE | 2021-07-16 18:18 | NUR ---
PRN ibuprofen administered for mild discomfort. Pt encouraged to use sitz bath, she agrees for after dinner and after her visitor leaves.
--- NOTE | 2021-07-16 19:07 | NUR ---
PATIENT SITTING UP ON EDGE OF BED AT THIS TIME. VISITOR IN ROOM. VITALS AND I&O'S CHARTED. CALL LIGHT IN REACH. NO FURTHER NEEDS AT THIS TIME.
--- NOTE | 2021-07-16 19:10 | NUR ---
REPORT RECEIVED FROM JENNIFER MARI. pt AWAKE, SITTING AT SIDE OF BED. DENIES PAIN AT THIS TIME. STATES "I'M JUST REALLY FULL, I ATE A LOT". DENIES ANY NEEDS, DENIES NAUSEA. CALL LIGHT IN REACH.
--- NOTE | 2021-07-16 21:25 | NUR ---
pt RESTING IN BED ASLEEP. AWAKENS TO VOICE. pt DENIES ANY PAIN. EDUCATION PROVIDED WITH PO MEDICATION ADMINISTRATION. pt UPSET RN ASKS WHY TAKING EACH MEDICATION, STATES "ITS MY DOCTORS BUSINESS NOT YOURS". EXPLAINED TO pt RN RESPONSIBILITY. pt ARGUMENTATIVE. RN EXPLAINS NOT TRYING TO OFFEND, JUST EDUCATE AND ENSURE RIGHT MEDICATIONS ADMINISTERED TO RIGHT PATIENT. GEOTHERMAL PRODUCTION MANAGER IN ROOM. ASSESSMENT COMPLETE. VSS. pt UP TO RESTROOM INDEPENDENTLY FOR SHOWER AND SITZ BATH. ICE WATER REFILLED. NO ADDITIONAL REQUESTS.
--- NOTE | 2021-07-17 00:09 | NUR ---
pt REQUESTING SNACK. PUDDING AND SANDWICH BOX PROVIDED BY SAI AZUL. NO ADDITIONAL REQUESTS.
--- NOTE | 2021-07-17 02:17 | NUR ---
CHECKED ON pt. RESTING IN BED. LIGHTS OFF IN ROOM. NO DISTRESS NOTED.
--- NOTE | 2021-07-17 03:56 | NUR ---
CHECKED ON pt. RESTING IN BED ON LEFT SIDE BREATHING EQUAL AND UNLABORED. NO DISTRESS NOTED. LIGHTS OFF IN ROOM.
--- NOTE | 2021-07-17 06:32 | NUR ---
pt RESTING IN BED AWAKE RN AND PASSENGER ATTENDANT ENTER ROOM. VSS. URINE EMPTIED FROM HAT. ASSESSMENT COMPLETE. pt DENIES PAIN, DENIES NAUSEA. DENIES ADDITIONAL NEEDS. CALL LIGHT IN REACH.
--- NOTE | 2021-07-17 07:15 | NUR ---
Report received from Candace RODRIGUEZ. Pt resting in bed with eyes closed, no needs at this time, on room air. Will continue plan of care.
--- NOTE | 2021-07-17 08:36 | NUR ---
Assessment complete, scheduled medications administered. Pt resting in bed and states no pain or needs. Discussed plan of care for hemmorhoid excision, consent signed and on chart. Pt has no questions. IV flushed WNL. Call light in reach
--- NOTE | 2021-07-17 11:17 | NUR ---
PATIENT ARRIVED BACK TO ROOM FROM OR DEPARTMENT. PATIENT HAD LOCAL INJECTION, CAUTERIZATION OF HEMORRHOID, GUAZE IN PLACE PER OR NURSE. NO POST OP VITALS PLANNED, PER OUT PATIENT PROCEDURE. PATIENT IS RESTING COMFORTABLY IN BED, DENIES PAIN AT THIS TIME.
--- NOTE | 2021-07-17 11:55 | NUR ---
Pt medicated with PRN motrin at this time for 5/10 pain after excision. She is ambulatory in the room and states no further needs.
[2021-07-17] MEDS ORDERED: CEPHALEXIN500 MG PO (13:10)
[2021-07-17] MEDS ORDERED: METRONIDAZOLE500 MG PO (13:11)
--- NOTE | 2021-07-17 13:40 | NUR ---
Call light answered, bath wipes and new attends provided to patient.
--- NOTE | 2021-07-17 14:10 | NUR ---
Spoke with pt. She is standing in the room. Wanting a patient bag so she can gather her belongings and dc. Plans on dc to home and denies needs.
--- NOTE | 2021-07-17 14:16 | PATH ---
[facility] [address], [place] [address] Signed SPECIMEN(S): A CECUM BIOPSY SPECIMEN(S): B ASCENDING/RIGHT COLON BIOPSY SPECIMEN(S): C COLON POLYP AT 60 CM SPECIMEN(S): D COLON BIOPSY AT 40 CM COLITIS SPECIMEN(S): E SIGMOID COLON BIOPSY SPECIMEN(S): F RECTAL BIOPSY SPECIMEN SOURCE: A. CECUM BIOPSY B. ASCENDING/RIGHT COLON BIOPSY C. COLON POLYP AT 60 CM D. COLON BIOPSY AT 40 CM COLITIS E. SIGMOID COLON BIOPSY F. RECTAL BIOPSY " CLINICAL HISTORY: Left abdominal pain, hematochezia, external hemorrhoids, colitis, polyp x 1. FINAL PATHOLOGIC DIAGNOSIS: A. Colon, cecum, biopsy: - Mild active colitis. - Negative for granulomas, dysplasia, or malignancy. B. Colon, ascending/right, biopsy: - Colonic mucosa with no histopathologic abnormality. - Negative for active, chronic, or microscopic colitis. - Negative for dysplasia or malignancy. C. Colon, polyp at 60 cm, polypectomy: - Tubular adenoma. - Negative for high-grade dysplasia or malignancy. D. Colon, 40 cm, biopsy: - Colonic mucosa with changes consistent with ischemic colitis. - Negative for granulomas, dysplasia, or malignancy. - See comment. E. Colon, sigmoid, biopsy: - Colonic mucosa with changes consistent with ischemic colitis. - Negative for granulomas, dysplasia or malignancy. - See comment. F. Rectum, biopsy: - Colorectal mucosa with no histopathologic abnormality. - Negative for active or chronic proctitis. PATIENT NAME: THEO VILLAFANA PATHOLOGY DATE OF : 58 REPORT #: [id number] PHYSICIAN: DON FOWLER PCP: VALERY BECERRA MD REPORT IS CONFIDENTIAL AND NOT TO BE RELEASED WITHOUT AUTHORIZATION [facility] [address], [place] [address] Signed - Negative for dysplasia or malignancy. COMMENT: Regarding specimens D and E: Sections demonstrate colonic mucosa surface mucosal injury, crypt injury and dropout, lamina propria hyalinization, and mild active inflammation. Overall, the findings are compatible with ischemic colitis, however the differential diagnosis also includes infectious etiologies. Clinical correlation required. NAL:cml:C2NR MICROSCOPIC EXAMINATION: Histologic sections of all submitted blocks are examined by light microscopy. These findings, together with the gross examination, support the pathologic diagnosis. GROSS DESCRIPTION: Six specimens are received in six containers, labeled "CD ." A. The specimen, labeled "CD, 1," and designated on the requisition "cecum," is received in formalin and consists of two stone soft tissue fragment(s) that measure 0.3 cm in greatest dimension. The specimen is entirely submitted in cassette (A1). B. The specimen, labeled "CD, 2," and designated on the requisition "ascending colon," is received in formalin and consists of two stone soft tissue fragment(s) that measure 0.2-0.3 cm in greatest dimension. The specimen is entirely submitted in cassette (B1). C. The specimen, labeled "CD, 3," and designated on the requisition "colon polyp at 60 cm," is received in formalin and consists of one stone soft tissue fragment(s) that measure 0.7 cm in greatest dimension. The specimen is entirely submitted in cassette (C1). D. The specimen, labeled "CD, 4," and designated on the requisition "colon polyp at 40 cm, colitis," is received in formalin and consists of three stone soft tissue fragment(s) that measure 0.3-0.4 cm in greatest dimension. The specimen is entirely submitted in cassette (D1). E. The specimen, labeled "CD, 5," and designated on the requisition "sigmoid colon," is received in formalin and consists of three stone soft tissue fragment(s) that measure 0.3-0.4 cm in greatest dimension. The specimen is entirely submitted in cassette (E1). F. The specimen, labeled "CD, 6," and designated on the requisition "rectum," is received in formalin and consists of two stone soft tissue fragment(s) that measure 0.3 cm in greatest dimension. The specimen is entirely submitted in cassette (F1). PATIENT NAME: THEO VILLAFANA PATHOLOGY DATE OF : 58 REPORT #: [id number] PHYSICIAN: DON FOWLER PCP: VALERY BECERRA MD REPORT IS CONFIDENTIAL AND NOT TO BE RELEASED WITHOUT AUTHORIZATION [address] [address] Signed AT (under the direct supervision of a pathologist) The Gross Description was prepared using a voice recognition system. The report was reviewed for accuracy; however, sound-alike word errors, addition and/or deletions may occur. If there is any question about this report, please contact Client Services. PERFORMING LABORATORY: The technical component was performed by [facility], [address] [place] [id number] (Manager Business Continuity: Keren León MD; CLIA# [id number]).Professional interpretation was performed by [facility], [facility], [address] [place] [address] (CLIA# [id number]). Diagnostician: Selena Rubin MD Pathologist Electronically Signed 07/17/2021 Copies: ~ PATIENT NAME: THEO VILLAFANA PATHOLOGY DATE OF : 58 REPORT #: [id number] PHYSICIAN: DON PATHOLOGY PCP: VALERY BECERRA MD REPORT IS CONFIDENTIAL AND NOT TO BE RELEASED WITHOUT AUTHORIZATION
--- NOTE | 2021-07-17 14:41 | NUR ---
Discharge teaching provided to patient who verbalizes understanding. Information given regarding low fiber eating plan, ischemic colitis, f/u appointment made, RX and rx instructions provided. IV removed WNL. Personal belongings returned. VSS, A+O. Friend to provide ride home.
--- NOTE | 2021-07-18 10:35 | PATH ---
[facility] [address] [place], [place] [address] Signed SPECIMEN(S): A RIGHT EXTERNAL HEMORRHOID, POST LAT RIGHT SPECIMEN SOURCE: A. RIGHT EXTERNAL HEMORRHOID, POST LAT RIGHT CLINICAL HISTORY: Thrombosed hemorrhoid, left sided colitis. FINAL PATHOLOGIC DIAGNOSIS: External hemorrhoid, posterior, lateral right, hemorrhoidectomy: - Consistent with thrombosed hemorrhoid. NAL:cml:C2NR MICROSCOPIC EXAMINATION: Histologic sections of all submitted blocks are examined by light microscopy. These findings, together with the gross examination, support the pathologic diagnosis. GROSS DESCRIPTION: The specimen, labeled "CD, right external hemorrhoid posterior, lateral right," is received in formalin and consists of skin and mucosal tissue fragments that measure 2.5 x 1.5 x 0.7 cm. Sectioning through the specimen reveals coagulated blood and subcutaneous congested tissue. Web Graphic Designer sections are submitted in cassette (A1). JS (under the direct supervision of a pathologist) The Gross Description was prepared using a voice recognition system. The report was reviewed for accuracy; however, sound-alike word errors, addition and/or deletions may occur. If there is any question about this report, please contact Client Services. PERFORMING LABORATORY: The technical component was performed by [facility], [address] [place] [id number] (Supervisor Inspection Department: Keren León MD; CLIA# [id number]). [facility], [address] [address] (CLIA# [id number]). Diagnostician: Selena Rubin MD Pathologist Electronically Signed 07/18/2021 PATIENT NAME: THEO VILLAFANA PATHOLOGY DATE OF : 58 REPORT #: [id number] PHYSICIAN: [facility] PCP: VALERY BECERRA MD REPORT IS CONFIDENTIAL AND NOT TO BE RELEASED WITHOUT AUTHORIZATION [address] [address] Signed Copies: ~ PATIENT NAME: THEO VILLAFANA PATHOLOGY DATE OF : 58 REPORT #: [id number] PHYSICIAN: [facility] PCP: VALERY BECERRA MD REPORT IS CONFIDENTIAL AND NOT TO BE RELEASED WITHOUT AUTHORIZATION
== END 2021-07-17 15:05 | disposition home or self-care (01) | DRG 347 ==
LOC: ED 19:30 → MS 22:38 → CCU 22:38 → MS 23:34
PROVIDERS: Surgery; ADMIT Internal Medicine; ATTEND Internal Medicine
PROC: 0DBH8ZX Excision of Cecum, Via Natural or Artificial Opening Endoscopic, Diagnostic (ICD-10-PCS; 2021-07-15)
PROC: 0DBN8ZX Excision of Sigmoid Colon, Via Natural or Artificial Opening Endoscopic, Diagnostic (ICD-10-PCS; 2021-07-15)
PROC: 0DBP8ZX Excision of Rectum, Via Natural or Artificial Opening Endoscopic, Diagnostic (ICD-10-PCS; 2021-07-15)
PROC: 0DBF8ZX Excision of Right Large Intestine, Via Natural or Artificial Opening Endoscopic, Diagnostic (ICD-10-PCS; 2021-07-15)
PROC: 0DBG8ZX Excision of Left Large Intestine, Via Natural or Artificial Opening Endoscopic, Diagnostic (ICD-10-PCS; 2021-07-15)
PROC: 0DBG8ZZ Excision of Left Large Intestine, Via Natural or Artificial Opening Endoscopic (ICD-10-PCS; 2021-07-15)
PROC: 06BY0ZC Excision of Hemorrhoidal Plexus, Open Approach (ICD-10-PCS; principal; 2021-07-17 11:30)
DX: K64.5 Perianal venous thrombosis (principal); K55.039 Acute (reversible) ischemia of large intestine, extent unspecified; K51.50 Left sided colitis without complications; F11.20 Opioid dependence, uncomplicated; Z20.822 Contact with and (suspected) exposure to COVID-19; I10 Essential (primary) hypertension; E78.5 Hyperlipidemia, unspecified; J44.9 Chronic obstructive pulmonary disease, unspecified; M15.9 Polyosteoarthritis, unspecified; E66.9 Obesity, unspecified; Z68.38 Body mass index [BMI] 38.0-38.9, adult; Z88.6 Allergy status to analgesic agent; M54.50 Low back pain, unspecified; G89.29 Other chronic pain
CPT/HCPCS: 36415; 74177; 80053; 81001; 83690; 83735; 85025; 85610; 94640; 94760; 96374; 96375; 99284-25; 99406; A9270; C9803; J0690; J0780; J2001; J2270; J2405; J2550; J2704; J3475; J7030; J7121; U0003

== ENCOUNTER 2021-11-25 22:21 | Emergency (ER) | payer OTHER, MEDICARE, MEDICAID ==
[~2021-11-25] VITALS: Ht 167.6 cm; Wt 107.6 kg
[~2021-11-25 22:21] MED LIST changes: +ATORVASTATIN CA80 MG PO; +CEPHALEXIN500 MG PO; +CLONIDINE1 EACH TOP; +DULOXETINE HCL60 MG PO; +FERROUS SULFAT325 M1 PO; +FLOVENT DISKU100 MCG INH; +METRONIDAZOLE500 MG PO; +OXYCODONE-ACET1 EAC3 PO; +PERCOCET 5-3251 EACH PO; +PREGABALIN100 MG PO; +SPIRIVA18 MCG INH; +VALACYCLOVIR500 MG PO; +VITAMIN C500 M1 PO; +VITAMIN D325 MC2 PO
--- OUTSIDE RECORDS SUMMARY | 2021-11-25 22:23 | XMS ---
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 - Has Care Guidelines CARE PROVIDERS [facility] Internal Medicine 07/16/2021-Current PHONE: Unknown Emily has no Care Guidelines for this patient. Care History Medical/Surgical 07/16/2021 [facility] - Patient is currently established with [facility]. If patient is seen in the ED during business hours. Please contact [facility]Ws at [facility]. Care Recommendation: If this patient has had 5 or more Emergency Department visits in the last 12 months.\T\nbsp;Patient will require education on the scope and purpose of the ED as an acute care provider not a Primary Care Provider and should not be utilized for chronic conditions.\T\nbsp; These are guidelines and the provider should exercise clinical judgment when providing care. E.D. VISIT COUNT (12 MO.) 2 [facility]: Visits indicate total known visits. ED/UCC VISIT TRACKING (12 MO.) 11/25/2021 22:21 [facility] Fitzgerald TYPE: Emergency COMPLAINT: - NECK PAIN/INJURY 08/04/2021 09:50 [facility] Radha MORTENSEN TYPE: Emergency DIAGNOSES: - Arm Injury - poss broken LT arm; heard snap - Displaced oblique fracture of shaft of humerus, left arm, initial encounter for closed fracture 07/13/2021 19:32 [facility] TYPE: Emergency COMPLAINT: - BLOOD IN STOOL 02/22/2021 23:00 [facility] Nabeel MORTENSEN TYPE: Emergency DIAGNOSES: - chest pain - Other chest pain INPATIENT VISIT TRACKING (12 MO.) 07/13/2021 22:38 MOO Fitzgerald TYPE: Medical Surgical COMPLAINT: - LEFT SIDED COLITIS DIAGNOSES: - Body mass index [BMI] 38.0-38.9, adult - LOW BACK PAIN, UNSPECIFIED - Obesity, unspecified - Other chronic pain - Left sided colitis without complications - Acute (reversible) ischemia of large intestine, extent unspecified - Polyosteoarthritis, unspecified - Chronic obstructive pulmonary disease, unspecified - LOW BACK PAIN, UNSPECIFIED - Low back pain, unspecified - Hyperlipidemia, unspecified - Chronic obstructive pulmonary disease, unspecified - Allergy status to analgesic agent - Obesity, unspecified - Essential (primary) hypertension - Contact with and (suspected) exposure to COVID-19 - Other chronic pain - Body mass index [BMI] 38.0-38.9, adult - Hyperlipidemia, unspecified - Essential (primary) hypertension - Perianal venous thrombosis - Left sided colitis without complications - Polyosteoarthritis, unspecified - Opioid dependence, uncomplicated - Allergy status to analgesic agent - Opioid dependence, uncomplicated - Perianal venous thrombosis [email or web address]
== END 2021-11-26 00:11 | disposition home or self-care (01) ==
LOC: ED 22:21
DX: S16.1XXA Strain of muscle, fascia and tendon at neck level, initial encounter (principal); I10 Essential (primary) hypertension; F17.200 Nicotine dependence, unspecified, uncomplicated; Z88.5 Allergy status to narcotic agent; Z79.899 Other long term (current) drug therapy; Z79.82 Long term (current) use of aspirin; V43.52XA Car driver injured in collision with other type car in traffic accident, initial encounter
CPT/HCPCS: 70450; 72125

== ENCOUNTER 2025-01-01 20:26 | Emergency (ER) | payer MEDICARE ==
[~2025-01-01] VITALS: Ht 167.6 cm; Wt 100.1 kg
[~2025-01-01 20:26] MED LIST changes: +ATORVASTATIN CA10 MG PO; +DILTIAZEM ER120 M2 PO; +MULTIPLE VITAM1 EAC2 PO; +OXYCODONE HCL5 MG PO; +ROSUVASTATIN CA10 MG PO; +SENNA LAX8.6 MG PO; +XARELTO10 MG PO
[2025-01-01 20:53] LABS: BASOPHILS 0.7 % (0.1-1.2); EOSINOPHILS 3.9 % (0.7-5.8); LYMPHOCYTES 29.7 % (19.3-51.7); MCH 28.4 PG (25.6-32.2); MCHC 32.1 g/dL (32.2-35.5); MCV 88.4 fL (79.4-94.8); MONOCYTES 8.8 % (4.7-12.5); NEUTROPHILS 56.7 % (34.0-71.1); RBC 3.88 M/uL (3.93-5.22)
[2025-01-01] MEDS ORDERED: SODIUM CHLORIDE 0.9% 1,000 ML IV PRN (21:00)
[2025-01-01 21:06] LABS: ALT (SGPT) 28.0 U/L (14-59); AST (SGOT) 25.0 U/L (15-37); GLOMERULAR FILTRATION RATE,EST 43.0 mL/min (>60); INR 0.97 (0.80-1.30); PROTEIN, TOTAL 7.6 g/dL (6.4-8.2); PROTIME 12.2 Sec (11.2-14.2); UREA NITROGEN 26.0 mg/dL (7-18)
[2025-01-01 23:34] LABS: BLOOD/HGB, URINE NEGATIVE (Negative); KETONE, URINE NEGATIVE (Negative); LEUK ESTERASE, URINE NEGATIVE (negative); NITRITE, URINE NEGATIVE (negative)
[2025-01-01 23:48] LABS: AMPHETAMINES, URINE NEGATIVE (NEGATIVE); BARBITURATES, URINE NEGATIVE (NEGATIVE); BENZODIAZEPINE, URINE NEGATIVE (NEGATIVE); CANNABINOID, URINE POSITIVE (NEGATIVE); COCAINE, URINE NEGATIVE (NEGATIVE); ECSTASY, URINE NEGATIVE (NEGATIVE); FENTANYL, URINE NEGATIVE (NEGATIVE); METHADONE, URINE NEGATIVE (NEGATIVE); OPIATES, URINE NEGATIVE (NEGATIVE); OXYCODONE, URINE POSITIVE (NEGATIVE); PHENCYCLIDINE, URINE NEGATIVE (NEGATIVE)
[2025-01-01 23:51] LABS: BACTERIA, URINE NONE SEEN /hpf (negative); CASTS, URINE NONE SEEN \\lpf; CRYSTALS, URINE NONE SEEN (0-1+); EPITHELIAL CELLS, URINE SQUAMOUS 1+ /lpf (0-1+); REFLEX CULTURE, URINE No (No)
[2025-01-02 01:41] VITALS: BP 131/70
--- NOTE | 2025-01-03 13:56 | EKG ---
[facility] [address] [place] [address] Signed Sinus bradycardia with premature atrial complexes Otherwise normal ECG When compared with ECG of 20-MAY-2019 16:26, premature atrial complexes are now present Criteria for Septal infarct are no longer present Confirmed by Cande Power MD () on 01/03/2025 1:56:07 PM Electronically Signed By: CANDE POWER MD 01/03/25 1356 PATIENT NAME: THEO VILLAFANA Electrocardiogram DATE OF : 58 PHYSICIAN: CANDE POWER MD REPORT #: [id number] REPORT IS CONFIDENTIAL AND NOT TO BE RELEASED WITHOUT AUTHORIZATION
== END 2025-01-02 01:41 | disposition home or self-care (01) ==
LOC: ED 20:26
PROVIDERS: Emergency Medicine
DX: M79.642 Pain in left hand (principal); R20.2 Paresthesia of skin; I10 Essential (primary) hypertension; J43.9 Emphysema, unspecified; F17.200 Nicotine dependence, unspecified, uncomplicated; Z88.5 Allergy status to narcotic agent; Z79.82 Long term (current) use of aspirin; Z79.899 Other long term (current) drug therapy
CPT/HCPCS: 36415; 70450; 70496; 70498; 80053; 80307; 81001; 84484; 85025; 85610; 85730; 93005; 93010; 99284-25; G0480; J7030; Q9967